=== PATIENT | male | born 1955 ===

== ENCOUNTER 2023-12-31 08:45 | Inpatient (IN) | payer OTHER ==
[~2023-12-31] VITALS: Ht 167.6 cm; Wt 63.5 kg
[2023-12-31] MEDS ORDERED: ADULT ASPIRIN81 MG PO (10:16)
[2023-12-31] MEDS ORDERED: PROSCAR5 MG PO (10:16)
[2023-12-31] MEDS ORDERED: TOPROL XL25 M1 (10:17)
[2023-12-31] MEDS ORDERED: LIPITOR40 M1 PO (10:17)
[2023-12-31] MEDS ORDERED: NIFEDIPINE ER60 M1 PO (10:19)
[2023-12-31] MEDS ORDERED: TIROSINT13 MCG (10:19)
[2023-12-31 10:30] VITALS: BP 140/100
[2023-12-31 10:46] LABS: PH,URINE 6.5 (5.0-8.0); URINE APPEARANCE Clear; URINE BILIRRUBIN Negative (NEGATIVE); URINE BLOOD Moderate; URINE COLOR Yellow; URINE GLUCOSE Negative (NEGATIVE); URINE KETONE Negative (NEGATIVE); URINE LEUKOCYTE Small; URINE NITRATE Negative; URINE PROTEIN Trace (NEGATIVE)
[2023-12-31 10:51] LABS: URINE BACTERIA 26.4 uL (0.0-1933); URINE RBC 174.2 uL (0.0-20.8); URINE WBC 25.6 uL (0.0-23.2)
[2023-12-31 10:51] LABS: HEMATOCRIT 45.3 % (39.0-48.0); HEMOGLOBIN 15.7 g/dL (13-16.00); MEAN CELL VOLUME 94.6 fL (80.0-100.00); MEAN CORPUSCULAR HEMOGLOBIN 32.8 pg (27.00-32.0); MEAN CORPUSCULAR HGB CONC 34.6 g/dl (32.0-36.0); PLATELET COUNT 166 K/uL (150-450); RED BLOOD COUNT 4.79 M/uL (4.00-6.00); RED CELL DISTRIBUTION WIDTH 14.5 % (11.5-14.5)
[2023-12-31 11:07] LABS: URINE EPITHELIAL CELLS 0.9 uL (0.0-38.8)
[2023-12-31 11:17] LABS: INR 1.1; PARTIAL THROMBOPLASTIN TIME 28.8 SECONDS (22.0-34.0); PROTHROMBIN TIME 11.9 SECONDS (9.0-11.5)
[2023-12-31 11:26] LABS: CREATININE SERUM 0.65 mg/dL (0.70-1.30); GFR 121.8; POTASSIUM 4.33 mEq/L (3.5-5.1)
[2023-12-31 13:34] LABS: RH POSITIVE
[2024-01-14] MEDS ORDERED: ENOXAPARIN SODIUM 40 MG/0.4 ML SYRINGE SUBCUTANEO ONE (19:15)
[2024-01-14] MEDS ORDERED: CEFAZOLIN SODIUM 1,000 MG VIAL IV ONE (19:15)
[2024-01-14] MEDS ORDERED: SURGIFLO APPLICATOR 1 EACH APPL TOP ONE (19:15)
[2024-01-14] MEDS ORDERED: HEMOSTATIC MATRIX 1 KIT KIT TOP ONE (19:15)
[2024-01-14] MEDS ORDERED: SUGAMMADEX SODIUM 200 MG/2 ML VIAL IV ONE (21:15)
[2024-01-14] MEDS ORDERED: ONDANSETRON HCL 2 MG/ML VIAL IV PRN (21:30)
[2024-01-14] MEDS ORDERED: OxyCODONE HCL/APAP UD (PERCOCET) PO PRN (21:30)
[2024-01-14] MEDS ORDERED: RINGERS SOLUTION,LACTATED 1,000 ML IV SCH (21:30)
[2024-01-14] MEDS ORDERED: MORPHINE SULFATE 4 MG/ML VIAL IV ONE (21:55)
[2024-01-14] MEDS ORDERED: hydrALAZINE HCL 20 MG VIAL IV ONE (23:15)
[2024-01-15] MEDS ORDERED: CEFAZOLIN SODIUM 1,000 MG VIAL IV SCH
[2024-01-15] MEDS ORDERED: GABAPENTIN 300 MG CAPSULE PO SCH (01:00)
[2024-01-15] MEDS ORDERED: KETOROLAC TROMETHAMINE 30 MG VIAL IV SCH (05:00)
[2024-01-15 07:16] LABS: HEMATOCRIT 44.3 % (39.0-48.0); HEMOGLOBIN 15.2 g/dL (13-16.00); MEAN CELL VOLUME 95.6 fL (80.0-100.00); MEAN CORPUSCULAR HEMOGLOBIN 32.7 pg (27.00-32.0); MEAN CORPUSCULAR HGB CONC 34.2 g/dl (32.0-36.0); PLATELET COUNT 143 K/uL (150-450); RED BLOOD COUNT 4.63 M/uL (4.00-6.00); RED CELL DISTRIBUTION WIDTH 14.1 % (11.5-14.5)
[2024-01-15 08:00] VITALS: BP 221/120; O2SAT 100
[2024-01-15 08:08] LABS: ALBUMIN 3.4 gm/dL (3.4-5.0); CALCIUM 8.4 mg/dL (8.5-10.1); CREATININE SERUM 0.72 mg/dL (0.70-1.30); GFR 108.24; PHOSPHOROUS 2.7 mg/dL (2.5-4.9); POTASSIUM 3.83 mEq/L (3.5-5.1)
[2024-01-15] MEDS ORDERED: ENOXAPARIN SODIUM 40 MG/0.4 ML SYRINGE SUBCUTANEO SCH (09:00)
[2024-01-15] MEDS ORDERED: METOPROLOL SUCCINATE 25 MG TAB.SR.24H PO SCH (09:00)
[2024-01-15] MEDS ORDERED: NIFEDIPINE 60 MG TAB.SA.OSM PO SCH (09:00)
[2024-01-15] MEDS ORDERED: FAMOTIDINE/PF 20 MG/2 ML VIAL IV SCH (09:00)
[2024-01-15] MEDS ORDERED: LEVOTHYROXINE SODIUM 50 MCG TABLET PO NR (10:00)
[2024-01-15] MEDS ORDERED: ENALAPRILAT DIHYDRATE 1.25 MG/ML VIAL IV PRN (16:00)
[2024-01-15] MEDS ORDERED: POLYETHYLENE GLYCOL 3350 17 GM BLIST.PACK PO SCH (17:00)
[2024-01-15 17:03] VITALS: BP 185/98; O2SAT 97
[2024-01-16] VITALS: BP 136/76; O2SAT 95
[2024-01-16] MEDS ORDERED: LEVOTHYROXINE SODIUM 50 MCG TABLET PO SCH (06:00)
[2024-01-16 08:00] VITALS: BP 180/90; O2SAT 96
[2024-01-16] MEDS ORDERED: METOPROLOL SUCCINATE 100 MG TAB.SR.24H PO SCH (09:00)
== END 2024-01-16 10:08 | disposition home or self-care (01) | DRG 708 ==
LOC: EDSTATUS 08:45 → O/R 01-14 06:00 → SURH 01-14 06:00 → EDSTATUS 01-14 08:45 → CIR.AMB 01-14 08:45 → SURH 01-14 08:45
PROVIDERS: ADMIT Urology; ATTEND Urology
PROC: 8E0W4CZ Robotic Assisted Procedure of Trunk Region, Percutaneous Endoscopic Approach (ICD-10-PCS; 2024-01-14)
PROC: 0VT04ZZ Resection of Prostate, Percutaneous Endoscopic Approach (ICD-10-PCS; principal; 2024-01-14 12:45)
DX: C61 Malignant neoplasm of prostate (principal)